=== PATIENT | female | born 1955 | race Caucasian/White ===

== ENCOUNTER → 2016-06-02 | Outpatient (CLI) | payer OTHER ==
[~2016-06-02] MED LIST: ADVIL200 MG PO; BI EST; CALCIUM1 CAP PO; FIORICET 325 MG1 TA1 PO; FLONASE NASAL S16 GM NS; MULTIPLE VITAMI1 CAP PO; NIACIN1 TAB PO; PREMPRO 0.3 MG-1 TAB PO; SALMON OIL PO; TESTOSTERONE; VITAMIN B COMPL1 T16 PO; VITAMIN C500 MG PO; VITAMIN D3400 IU PO
== END ==
LOC: COL.RAD 11:22
DX: E04.1 Nontoxic single thyroid nodule (principal); K76.9 Liver disease, unspecified; J38.01 Paralysis of vocal cords and larynx, unilateral
CPT/HCPCS: Q9967

== ENCOUNTER → 2016-06-15 | Outpatient (CLI) | payer OTHER | LOC: MC.RAD 07:12 | DX: Z12.31 Encounter for screening mammogram for malignant neoplasm of breast (principal) ==

== ENCOUNTER → 2016-12-26 | Outpatient (REF) | LOC: WSOH 08:30 | DX: Z02.89 Encounter for other administrative examinations (principal) ==

== ENCOUNTER → 2017-07-19 | Outpatient (CLI) | payer OTHER | LOC: MC.RAD 07:22 | DX: Z12.31 Encounter for screening mammogram for malignant neoplasm of breast (principal) ==

== ENCOUNTER → 2018-08-29 | Outpatient (CLI) | payer OTHER | LOC: MC.RAD 13:50 | DX: Z12.31 Encounter for screening mammogram for malignant neoplasm of breast (principal) ==

== ENCOUNTER → 2018-09-01 | Outpatient (CLI) | payer OTHER | LOC: MC.RAD 10:30 | DX: R92.2 Inconclusive mammogram (principal) | CPT/HCPCS: G0279 ==

== ENCOUNTER → 2019-09-11 | Outpatient (CLI) | payer OTHER | LOC: MC.RAD 18:16 | DX: Z12.31 Encounter for screening mammogram for malignant neoplasm of breast (principal) ==

== ENCOUNTER → 2020-09-12 | Outpatient (CLI) | payer OTHER | LOC: MC.RAD 08:07 | DX: Z12.31 Encounter for screening mammogram for malignant neoplasm of breast (principal) ==

== ENCOUNTER 2023-02-07 06:13 | Day surgery (SDC) | payer OTHER ==
[~2023-02-07] VITALS: Ht 160 cm; Wt 66.9 kg
[2023-02-07] MEDS ORDERED: MAGNESIUM PO (06:55)
[2023-02-07] MEDS ORDERED: OMEGA-3 1000 MG1 CAP PO (06:56)
[2023-02-07 07:30] VITALS: BP 135/87; PULSE 72; TEMP 97.8
[2023-02-07 08:40] VITALS: BP 122/66; PULSE 56; TEMP 97
[2023-02-07 08:55] VITALS: BP 104/70; PULSE 57
--- NOTE | 2023-02-07 09:14 | NUR ---
0840-PT ARRIVED VIA CART TO [facility], AMBULATED TO RECLINER WITH ASSISTANCE. WARM BLANKET PROVIDED. VITAL SIGNS TAKEN, VSS. PT DENIES PAIN OR NAUSEA. PO INTAKE OFFERED 0855-PT TOLERATING PO INTAKE, DENIES COMPLAINTS. VSS 0900-DC PAPERWORK REVIEWED, QUESTIONS INVITED. IV CATHETER DISCONTINUED, TIP INTACT. PRESSURE HELD AND BANDAGE APPLIED. PT CHANGED INDEPENDENTLY. 0910-PT DISCHARGED HOME TO [facility] VIA WHEELCHAIR, ACCOMPANIED BY SPOUSE. ALL BELONGINGS AND DC PAPERWORK SENT WITH PT.
== END 2023-02-07 09:10 | disposition home or self-care (01) ==
LOC: SDCO 06:13
DX: Z12.11 Encounter for screening for malignant neoplasm of colon (principal); K63.89 Other specified diseases of intestine; K63.5 Polyp of colon
CPT/HCPCS: J2704; J7120